=== PATIENT | female | born 1950 | race African-American/Black ===

== ENCOUNTER → 2016-11-26 | Outpatient (CLI) | payer MEDICARE, OTHER | END | disposition home or self-care (01) | LOC: PCVCCLINIC 11:26 | PROVIDERS: ATTEND Internal Medicine Cardiovascular Disease | DX: I25.10 Atherosclerotic heart disease of native coronary artery without angina pectoris (principal); E78.4 Other hyperlipidemia; I12.9 Hypertensive chronic kidney disease with stage 1 through stage 4 chronic kidney disease, or unspecified chronic kidney disease; E11.22 Type 2 diabetes mellitus with diabetic chronic kidney disease; N18.9 Chronic kidney disease, unspecified; I87.2 Venous insufficiency (chronic) (peripheral); I45.10 Unspecified right bundle-branch block; E11.40 Type 2 diabetes mellitus with diabetic neuropathy, unspecified; E11.319 Type 2 diabetes mellitus with unspecified diabetic retinopathy without macular edema; E03.9 Hypothyroidism, unspecified; Z86.73 Personal history of transient ischemic attack (TIA), and cerebral infarction without residual deficits; Z90.49 Acquired absence of other specified parts of digestive tract; Z95.1 Presence of aortocoronary bypass graft; Z90.710 Acquired absence of both cervix and uterus; Z79.84 Long term (current) use of oral hypoglycemic drugs; Z88.2 Allergy status to sulfonamides | CPT/HCPCS: 80061; 93005; G0463 ==

== ENCOUNTER → 2017-03-05 | Outpatient (CLI) | payer MEDICARE, OTHER ==
--- NOTE | 2017-03-05 14:23 | PCVCIMAG ---
APPROVED REPORT Study performed: 03/05/2017 10:43:15 EXAM: Comprehensive 2D, Doppler, and color-flow Echocardiogram Patient Location: Echo lab Room #: 2Status: routine BSA: 2.11 HR: 75 bpmBP: 178/100 mmHg Rhythm: RBBB Other Information Study Quality: Technically Difficult Risk Factors: Cardiac Risk Factors: HTN, DM Indications CVA/TIA Diabetes CAD Hypertension/HDD S/P CABG 2D Dimensions LVEF(%): 76.29 (>50%) IVSd: 9.94 (7-11mm)LVOT Diam: 19.51 (18-24mm) LVDd: 50.28 mm PWd: 8.25 (7-11mm) LVDs: 27.55 (25-40mm) Left Atrium: 42.78 (27-40mm) Aortic Root: 23.94 mm Alves's LVEF: 76.29 % Volumes Left Atrial Volume (Systole) Single Plane 4CH: 57.73 mLSingle Plane 2CH: 42.89 mL Biplane LA Volume: 54.00 mLLA ESV Index: 25.00 mL/m2 Aortic Valve AoV Peak Javier.: 1.08 m/s AO Peak Gr.: 4.65 mmHgLVOT Max P.74 mmHg LVOT Max V: 0.66 m/s MARIA GUADALUPE Vmax: 1.83 cm2 Mitral Valve E/A Ratio: 1.1 MV Decel. Time: 194.88 ms MV E Max Javier.: 0.79 m/s MV A Javier.: 0.71 m/s IVRT: 114.19 ms TDI E/Lateral E': 9.88E/Medial E': 11.29 Medial E' Javier.: 0.07 m/s Lateral E' Javier.: 0.08 m/s Pulmonary Valve PV Peak Javier.: 0.72 m/sPV Peak Gr.: 2.09 mmHg Pulmonary Vein P Vein S: 0.41 m/sP Vein A: 0.21 m/s P Vein D: 0.58 m/sP Vein A Dur.: 83.0 msec P Vein S/D Ratio: 0.71 Tricuspid Valve TR Peak Javier.: 2.73 m/s TR Peak Gr.: 29.73 mmHg TV Vmax: 0.75 m/sPA Pressure: 37.00 mmHg Left Ventricle The left ventricle is normal size. Abnormal septal motion consistent with post CABG is seen. Regional wall motion is not well visualized but grossly normal. Borderline concentric left ventricular hypertrophy. The overall left ventricular systolic function appears low normal normal.tech diff to eval endocardium The left ventricular diastolic function is normal. Right Ventricle The right ventricle is normal size. The right ventricular systolic function is normal. Atria The left atrium size is normal. The right atrium size is normal. Aortic Valve The aortic valve is normal in structure. No aortic regurgitation is present. There is no aortic valvular stenosis. Mitral Valve The mitral valve is normal in structure. Trace mitral regurgitation. No evidence of mitral valve stenosis. Tricuspid Valve The tricuspid valve is normal in structure. Trace to mild tricuspid regurgitation with a mildly dilated PA pressure . Pulmonic Valve The pulmonary valve is normal in structure. There is no pulmonic valvular regurgitation. Great Vessels The aortic root is normal in size. The ascending aorta is normal in size. The inferior vena cava is not well visualized. Pericardium There is no pericardial effusion. There is no pleural effusion. <Conclusion> The left ventricle is normal size. Borderline concentric left ventricular hypertrophy. The overall left ventricular systolic function appears low normal normal.tech diff to eval endocardium The left ventricular diastolic function is normal. The right ventricle is normal size. The left atrium size is normal. The aortic valve is normal in structure. Trace mitral regurgitation. Trace to mild tricuspid regurgitation with a mildly dilated PA pressure . There is no pericardial effusion.
== END | disposition home or self-care (01) ==
LOC: PCVCIMAG 10:18
PROVIDERS: ATTEND Internal Medicine Cardiovascular Disease
DX: I25.10 Atherosclerotic heart disease of native coronary artery without angina pectoris (principal); I12.9 Hypertensive chronic kidney disease with stage 1 through stage 4 chronic kidney disease, or unspecified chronic kidney disease; E11.22 Type 2 diabetes mellitus with diabetic chronic kidney disease; I45.10 Unspecified right bundle-branch block; I63.9 Cerebral infarction, unspecified; E78.00 Pure hypercholesterolemia, unspecified; R60.0 Localized edema; D63.8 Anemia in other chronic diseases classified elsewhere; Z95.1 Presence of aortocoronary bypass graft; Z79.899 Other long term (current) drug therapy; Z79.82 Long term (current) use of aspirin
CPT/HCPCS: 93005; 93306; G0463

== ENCOUNTER → 2017-04-01 | Outpatient (CLI) | payer MEDICARE, OTHER ==
[~2017-04-01] MED LIST: REGADENOSON 0.4 MG/5 ML DISP.SYRIN. IV ONE
--- NOTE | 2017-04-01 18:05 | PCVCIMAG ---
APPROVED REPORT Exam: Nuclear Stress Test Patient Location: Out-Patient Stress Nurse: Marni Robles RN, Mana Rosenberg RN CT Tech:JESSICA HorowitzMT Ht: 5 ft 4 in Wt: 247 lbs BSA: 2.14 m2 HR: 70 bpm BP: 214/102 mmHg BMI: 42.3 Rhythm: NSR, RBBB Medical History Medical History: HTN, Hyperlipidemia, Diabetes, Age, CAD, [place] Medications: Lasix, amaryl, toprol XL (held 12h), crestor, metformin Allergies: Sulfa Previous Cardiac Procedures: CABG Pretest Chest Pain Characteristics: No chest pain Physical Disabilities: Left sided paralysis S/P stroke NM EXAM: Myocardial Perfusion REST/STRESS Imaging Protocol: Rest Tc-99m/Stress Tc-99m 1 day Resting Data Rest SPECT myocardial perfusion imaging was performed in supine position 45 minutes following the intravenous injection of 15.4 mCi of Tc-99m Sestamibi. Time of rest injection: 1330 Date: 04/01/2017 Administration Route: IV Administration Site: [facility] Pharmacologic Stress Pharmacologic stress test was performed by injecting Regadenoson 0.4 mg IV push followed by the intravenous injection of 41.3 mCi of Tc-99m Sestamibi. Time of stress injection: 1500 Date: 04/01/2017 Administration Route: IV Administration Site: [facility] Study Quality Study: Good Study Data Post stress, the left ventricular ejection was 70%.. SSS: 16 SRS: 6 SDS: 10 TID = 1.04. Perfusion Medium sized area of moderate reversible ischemia involving the inferolateral left ventricle consistent with a circumflex distribution. Wall Motion Normal left ventricular size and function with no regional wall motion abnormalities. Nuclear Conclusion Medium sized area of moderate reversible ischemia involving the inferolateral left ventricle consistent with a circumflex distribution. Normal left ventricular size and function with no regional wall motion abnormalities. Post stress, the left ventricular ejection was 70%.. No prior study available for comparison. Interpreted by: Aneudy Burgess MD Electronically Approved: 04/01/2017 17:38:02 Stress Test Details Stress Test: Pharmacologic stress testing performed using 0.4 mg of regadenoson per 5 mL given IV over 10 seconds. Reason for pharmacologic stress test: physical limitation, uses a wheelchair; left sided paralysis. HR Resting HR: 70 bpmMax Heart Rate (APMHR): 154 bpm Max HR Achieved: 96 bpmTarget HR (85% APMHR): 130 bpm % of APMHR: 62 Recovery HR: 85 bpm BP Resting BP: 214/102 mmHg Max BP: 213/98 mmHg ECG Resting ECG: SR with R BBB Stress ECG: SR with R BBB, Sinus Rhythm, NSSTT changes Recovery ECG: SR with R BBB Clinical Reason for Termination: Completed protocol Stress Symptoms: None Exercise duration: 0 min 55 sec Stress ECG Conclusion Clinical: Non-ischemic ECG: Non-ischemic <Conclusion> Clinical: Non-ischemic ECG: Non-ischemic
== END | disposition home or self-care (01) ==
LOC: EDSTATUS 06:26 → PCVCIMAG 13:34
PROVIDERS: ATTEND Internal Medicine Cardiovascular Disease
DX: I25.10 Atherosclerotic heart disease of native coronary artery without angina pectoris (principal); E11.9 Type 2 diabetes mellitus without complications; Z95.1 Presence of aortocoronary bypass graft
CPT/HCPCS: 78452; 93017; A9500; J2785

== ENCOUNTER → 2017-04-10 | Outpatient (CLI) | payer MEDICARE, OTHER | END | disposition home or self-care (01) | LOC: PCVCCLINIC 11:15 | PROVIDERS: ATTEND Internal Medicine Cardiovascular Disease | DX: I12.9 Hypertensive chronic kidney disease with stage 1 through stage 4 chronic kidney disease, or unspecified chronic kidney disease (principal); E11.40 Type 2 diabetes mellitus with diabetic neuropathy, unspecified; E78.5 Hyperlipidemia, unspecified; I25.10 Atherosclerotic heart disease of native coronary artery without angina pectoris; E11.22 Type 2 diabetes mellitus with diabetic chronic kidney disease; D63.8 Anemia in other chronic diseases classified elsewhere; Z95.1 Presence of aortocoronary bypass graft | CPT/HCPCS: 36415 ==

== ENCOUNTER → 2017-11-12 | Outpatient (CLI) | payer MEDICARE, OTHER | END | disposition home or self-care (01) | LOC: PCVCCLINIC 11:30 | DX: I25.10 Atherosclerotic heart disease of native coronary artery without angina pectoris (principal); I12.9 Hypertensive chronic kidney disease with stage 1 through stage 4 chronic kidney disease, or unspecified chronic kidney disease; E11.22 Type 2 diabetes mellitus with diabetic chronic kidney disease; N18.3 Chronic kidney disease, stage 3 (moderate); E78.01 Familial hypercholesterolemia; R60.0 Localized edema; I73.9 Peripheral vascular disease, unspecified; Z95.1 Presence of aortocoronary bypass graft; Z79.84 Long term (current) use of oral hypoglycemic drugs; Z79.899 Other long term (current) drug therapy; Z88.2 Allergy status to sulfonamides | CPT/HCPCS: 80061; 93005; G0463 ==